=== PATIENT | female | born 1970 | race Caucasian/White ===

== ENCOUNTER → 2016-03-07 | Outpatient (CLI) | payer OTHER ==
[2015-12-17 17:14] VITALS: BP 113/72
[~2016-03-07] MED LIST: GADOBUTROL 10 MMOL/10 ML VIAL IV ONE; HYDR-971 PO; ORPH100T PO
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
== END | disposition home or self-care (01) ==
LOC: KCIC MRI 07:44
PROVIDERS: ATTEND Psychiatry & Neurology Neurology
DX: S06.0X0A Concussion without loss of consciousness, initial encounter (principal); X58.XXXA Exposure to other specified factors, initial encounter; Y93.89 Activity, other specified; Y92.89 Other specified places as the place of occurrence of the external cause; Y99.8 Other external cause status
CPT/HCPCS: 70553; 73110